=== PATIENT | male | born 2000 ===

== ENCOUNTER 2021-12-11 08:01 | Emergency (ER) | payer OTHER ==
[2021-12-11 09:14] LABS: INFLUENZA A NAA NEGATIVE (NEGATIVE)
[2021-12-11 09:16] LABS: CORONAVIRUS 2019 SARS-COV-2 POSITIVE (NEGATIVE)
[2021-12-11] MEDS ORDERED: VENTOLIN HFA IN18 GM INH (09:33)
== END 2021-12-11 10:23 | disposition home or self-care (01) ==
LOC: FER 08:01
PROVIDERS: Emergency Medicine
DX: U07.1 COVID-19 (principal); F17.200 Nicotine dependence, unspecified, uncomplicated; Z88.0 Allergy status to penicillin
CPT/HCPCS: 71045; 93005; U0002

== ENCOUNTER 2022-04-23 09:15 | Emergency (ER) | payer OTHER ==
[~2022-04-23 09:15] MED LIST: VENTOLIN HFA IN18 GM INH
== END 2022-04-23 13:42 | disposition home or self-care (01) ==
LOC: FER 09:15
DX: J02.9 Acute pharyngitis, unspecified (principal); J30.9 Allergic rhinitis, unspecified; Z88.0 Allergy status to penicillin
CPT/HCPCS: 87880; 99283